=== PATIENT | female | born 1965 | race Hispanic/Latino ===

== ENCOUNTER 2017-09-18 13:56 | Emergency (ER) | payer MEDICARE ==
[2017-09-18] MEDS ORDERED: DIATR MEGLU/DIATRIZOATE SODIUM 30 ML BOTTLE PO ONE (14:43)
== END 2017-09-18 15:14 | disposition home or self-care (01) ==
LOC: EDH 13:56
DX: K94.23 Gastrostomy malfunction (principal); G80.9 Cerebral palsy, unspecified; E07.9 Disorder of thyroid, unspecified
CPT/HCPCS: 43760; 74018; 99284; Q9963

== ENCOUNTER 2018-06-22 12:06 | Emergency (ER) | payer MEDICARE ==
[~2018-06-22 12:06] MED LIST: ACET650S14 RC; ALBU2.5V2 IH; AMIT25 PEG; ASCO500T10 PEG; BACL10TA PEG; DOXY100C PEG; ENOX40DI8 SQ; FLUC200T PEG; FURO20TA6 PEG; HYDR-4457 PEG; HYDR1SYR3 IV; LACT10SO9 PEG; LEVE500L PEG; LEVO500T2 PO; LEVO75 PEG; LEVO75TA10 PEG; LORA2VIA33 IV; MIDO5 PEG; NITR0.4T SL; OXCA300T46 PO; PANT40TA25 PEG; PHEN32.43 PO; POLY17PO4 PEG; SERT50TA PEG; SERT50TA12 PEG; SIME80 PO; SPIR50TA PEG; [UNRECOGNIZED DRUG - CODE] IV
[2018-06-22 14:54] LABS: APPEARANCE,URINE SL CLOUDY (CLEAR); BILIRUBIN,URINE NEGATIVE (NEGATIVE); COLOR,URINE YELLOW (YELLOW); GLUCOSE, URINE (UA) NEGATIVE (NEGATIVE); KETONES,URINE NEGATIVE (NEGATIVE); LEUKOCYTE ESTERASE ,URINE MODERATE (NEGATIVE); NITRATE,URINE POSITIVE (NEGATIVE); OCCULT BLOOD,URINE MODERATE (NEGATIVE); PROTEIN,URINE 30 (NEGATIVE); UROBILINOGEN,URINE 0.2 mg/dL (0.2-1.0)
[2018-06-22] MEDS ORDERED: DIATR MEGLU/DIATRIZOATE SODIUM 30 ML BOTTLE ONE (14:57)
[2018-06-22 15:11] LABS: BACTERIA,URINE Few /HPF (None Seen); SQUAMOUS EPITHELIAL CELL,UR Rare /HPF (0-2)
== END 2018-06-22 15:52 | disposition home or self-care (01) ==
LOC: EDH 12:06
DX: Z43.1 Encounter for attention to gastrostomy (principal); E07.9 Disorder of thyroid, unspecified; Z98.890 Other specified postprocedural states
CPT/HCPCS: 43760; 74018; 81001; 87077; 87088; 87186; 99285; Q9963

== ENCOUNTER 2020-04-12 23:26 | Inpatient (IN) | payer MEDICARE ==
[~2020-04-12 23:26] MED LIST changes: -PANT40TA25 PEG; +PANT40TA55 PEG; -PHEN32.43 PO; +PHEN32.46 PO
[2020-04-13] MEDS ORDERED: DIATR MEGLU/DIATRIZOATE SODIUM 30 ML BOTTLE ONE (00:46)
[2020-04-13] MEDS ORDERED: SODIUM CHLORIDE 0.9% 1000ML 1,000 ML IV SCH (02:13)
[2020-04-13] MEDS ORDERED: DIPHENHYDRAMINE HCL 25 MG CAPSULE PO PRN (02:15)
[2020-04-13] MEDS ORDERED: LACTULOSE 20 GM/30 ML UDCUP PO PRN (02:15)
[2020-04-13] MEDS ORDERED: ONDANSETRON HCL 4 MG/2 ML VIAL IV PRN (02:15)
[2020-04-13] MEDS ORDERED: MAG HYDROX/AL HYDROX/SIMETH 30 ML, LIDOCAINE HCL 2% VISCOUS 30 ML, DIPHENHYDRAMINE HCL ... PO PRN ×3 (02:15)
[2020-04-13] MEDS ORDERED: GUAIFENESIN-DM 200/20 MG 10 ML PO PRN (02:15)
[2020-04-13] MEDS ORDERED: ZOLPIDEM TARTRATE 5 MG TAB PO PRN (02:15)
[2020-04-13] MEDS ORDERED: MAG HYDROX/AL HYDROX/SIMETH ES 30 ML SUSP UDCUP PO PRN (02:15)
[2020-04-13] MEDS ORDERED: DiphenhydrAMINE HCL 50 MG/ML VIAL IV PRN (02:15)
[2020-04-13] MEDS ORDERED: ACETAMINOPHEN 325 MG TAB PO PRN ×2 (02:15)
[2020-04-13] MEDS ORDERED: LIDOCAINE HCL 2% VISCOUS 30 ML, MAG HYDROX/AL HYDROX/SIMETH 30 ML, BELLADONNA-PHENOBARB... PO PRN ×3 (02:15)
[2020-04-13] MEDS ORDERED: NITROGLYCERIN 0.4 MG SL TAB SL PRN (02:15)
[2020-04-13 02:48] LABS: BASOPHILS % (AUTO) 0.3 % (0.0-5.0); EOSINOPHILS % (AUTO) 2.3 % (0.0-8.0); HEMATOCRIT 32.2 % (36-48); LYMPHOCYTES % (AUTO) 29.2 % (21.0-51.0); MEAN CORPUSCULAR HEMOGLOBIN 30.9 pg (27.0-33.0); MEAN CORPUSCULAR HGB CONC 34.5 g/dL (32.0-36.0); MEAN CORPUSCULAR VOLUME 89.7 fL (79-99); MONOCYTES % (AUTO) 6.4 % (3.0-13.0); NEUTROPHILS % (AUTO) 61.5 % (40.0-77.0); PLATELET COUNT (AUTO) 293 K/uL (130-400); RED BLOOD CELL COUNT(AUTO) 3.59 MIL/uL (4.00-5.50); RED CELL DISTRIBUTION WIDTH 13.2 % (11.0-15.5); WHITE BLOOD COUNT (AUTO) 10.4 K/uL (4.8-10.8)
[2020-04-13 02:57] LABS: CREATININE 0.8 mg/dL (0.5-1.5); POTASSIUM 4.1 mmol/L (3.5-5.1)
[2020-04-13] MEDS: FAMOTIDINE/PF 20 MG/2 ML VIAL IV SCH ×2 (09:00→20:58)
[2020-04-13 09:48] VITALS: BP 97/59
[2020-04-13] MEDS ORDERED: PHEN20EL5 PEG (11:38)
[2020-04-13] MEDS ORDERED: OXCA300T28 PEG ×2 (11:38)
[2020-04-13] MEDS ORDERED: LEVE500L PEG (11:39)
[2020-04-13] MEDS ORDERED: BACL10TA PEG (11:39)
[2020-04-13 16:46] VITALS: BP 121/67
[2020-04-13 20:00] VITALS: BP 149/77
[2020-04-13] MEDS: LEVETIRACETAM 500 MG in SODIUM CHLORIDE 0.9% 100 ML IV SCH (20:58)
[2020-04-13] MEDS: PHENOBARBITAL 20 MG/5 ML PEG SCH (21:00)
[2020-04-13] MEDS: LEVETIRACETAM PEG SCH (21:00)
--- NOTE | 2020-04-13 21:45 | NUR ---
phenobarbital 120 mg iv given as ordered by turbine inspector
[2020-04-13] MEDS ORDERED: PHARMACY COMMUNICATION MISC SCH (22:00)
[2020-04-14] VITALS (26 sets, daily range): BP systolic 80–150; BP diastolic 53–79
[2020-04-14 06:02] LABS: BASOPHILS % (AUTO) 0.3 % (0.0-5.0); EOSINOPHILS % (AUTO) 2.4 % (0.0-8.0); HEMATOCRIT 33.8 % (36-48); LYMPHOCYTES % (AUTO) 45.6 % (21.0-51.0); MEAN CORPUSCULAR HEMOGLOBIN 30.3 pg (27.0-33.0); MEAN CORPUSCULAR HGB CONC 33.4 g/dL (32.0-36.0); MEAN CORPUSCULAR VOLUME 90.6 fL (79-99); MONOCYTES % (AUTO) 8.1 % (3.0-13.0); NEUTROPHILS % (AUTO) 43.5 % (40.0-77.0); PLATELET COUNT (AUTO) 256 K/uL (130-400); RED BLOOD CELL COUNT(AUTO) 3.73 MIL/uL (4.00-5.50); RED CELL DISTRIBUTION WIDTH 13.2 % (11.0-15.5); WHITE BLOOD COUNT (AUTO) 6.7 K/uL (4.8-10.8)
[2020-04-14] MEDS: LEVETIRACETAM 500 MG in SODIUM CHLORIDE 0.9% 100 ML IV SCH ×2 (06:16→13:57)
[2020-04-14 06:19] LABS: ALBUMIN 3.5 g/dL (3.5-5.0); BILIRUBIN,TOTAL 0.3 mg/dL (0.2-1.0); CREATININE 0.3 mg/dL (0.5-1.5); POTASSIUM 3.6 mmol/L (3.5-5.1); TOTAL PROTEIN, SERUM 6.9 g/dL (6.0-8.3)
[2020-04-14] MEDS ORDERED: PHENOBARBITAL SODIUM 65 MG/ML ML IV SCH (06:30)
[2020-04-14] MEDS ORDERED: PHENOBARBITAL SODIUM IV SCH (06:45)
[2020-04-14] MEDS ORDERED: SODIUM CHLORIDE 0.9% IV SCH (06:45)
[2020-04-14] MEDS: LEVOTHYROXINE 75 MCG TABLET PEG SCH (07:10)
[2020-04-14] MEDS: BACLOFEN 10 MG TABLET PEG SCH (08:46)
[2020-04-14] MEDS: LEVETIRACETAM PEG SCH (09:00)
[2020-04-14] MEDS: FAMOTIDINE/PF 20 MG/2 ML VIAL IV SCH ×2 (09:05→22:34)
--- NOTE | 2020-04-14 10:21 | NUR ---
RD NOTIFICATION - TUBE FEEDING Pt pending PEG placement. Recommend initiate Continuous feedings of Jevity 1.5 initiated at 25mls/hr. Goal rate 50mls per hour. H2O Flushes at 175 Q6hrs. Bolus recommendations provided for discharge at 5 cans Jevity 1.5 per day. H2O Flushes for 180mls before and after each feeding. Recommendations faxed to [phone] RN notified. NUTRITION NOTE: Pt admitted for PEG malfunction, pending PEG placement. Approximate Ht and Weights used due to malfunctioning bed scale. Pt with History of CP and is bedbound. Ht obtained from previous admission (2018). RD to continue to monitor. Please notify as additional nutrition concerns arise. Thank you.
[2020-04-14] MEDS ORDERED: CEFAZOLIN SODIUM 1 GM VIAL ONE (11:49)
--- NOTE | 2020-04-14 12:15 | NUR ---
[facility] consult Unable to assess patient at this time as she is away from room for procedure. Will attempt at another time.
[2020-04-14] MEDS ORDERED: COMPOUND IV MISC 1 EACH IVSOLN MISC PRN (12:30)
--- NOTE | 2020-04-14 13:31 | NUR ---
IA- CLAL TO SISTER VIA PHONE STATE CAPRI LVIES WITH SISTER GARTH, HER SON, AND MANY GRANDCHILDREN. NEPHEW AND SISTER ARE PROVIDERS. [facility] HAS HOSPITAL BED AND WHEELCHAIR, USED TO HAVE W/CHAIR VAN BUT IT HAS BROEKN DOWN . NEEDING TO SAVE UP TO GET IT FIXED. STATES THAT PATIENT GETS MILK THROUGH [employer], DELIVERED, FORMULA IS PEDIMENT 1.0, NOT AVAIALBE AT THIS HOSPITAL, BUT PATIENT HAS NO INTOLERANCE OF OTHER FORMULAS. NO HOME HEALTH SISTER STATES WILL NEED EMS TRANSPORT, HAS HAD BROKEN BRITTNI LOWER EXTREMITIES AND CONTRACTURES. DCP TO HOME, 24-48 HRS AFTER G TUBE REPLACED. DISCUSSED TELE HEALTH WITH SISTER, WHO WILL CALL PCP TO FIND OUT IF PCP OFFICE IS DOING CM TO FOLLOW. Addendum: 04/14/20 at 1337 by RAJWINDER GREY RN CM Amended: Links added.
[2020-04-14] MEDS ORDERED: PHARMACY COMMUNICATION MISC SCH ×2 (14:45→20:00)
--- NOTE | 2020-04-14 15:12 | NUR ---
TUBE FEEDING STARTED TUBE FEEDING OF [facility] 1.5 AT APPROX 1505 HOURS. START RATE IS 25ML/HR FOR 5 HOURS THEN INCREASE 5ML/HR EVERY 5 HOURS TO A GOAL RATE OF 50ML/HR.
[2020-04-14] MEDS: OXCARBAZEPINE 300 MG TAB PEG SCH (22:34)
[2020-04-14] MEDS: PHENOBARBITAL 20 MG/5 ML PEG SCH (22:34)
--- NOTE | 2020-04-14 22:35 | NUR ---
GIVEN KEPPRA IV THAT PATIENT STILL HAD IN THE MEDICATION ROOM SINCE PHARMACY DID NOT BRING NOR FORMULATED THE MEDICATION VIA PEG TUBE AND IS NOT IN STOCKED IN THE MEDICATION ROOM
--- NOTE | 2020-04-14 22:45 | NUR ---
PT SUDDENLY HAD WHAT ACCORDING TO THE DATA WAREHOUSING ENGINEER WAS A SEIZURE, NURSE WAS AT THE BEDSIDE AND DATA WAREHOUSING ENGINEER WAS PAGED, DATA WAREHOUSING ENGINEER ARRIVED AT BEDSIDE VITAL SIGNS WERE STABLE THROUGH OUT ATIVAN 1 MG WAS GIVEN IV AND NEW ORDERFOR ATIVAN PRN IN CPEO ORDERS SEIZURE LASTED FOR 4:00 MINUTES AND PATIENT BECAME ORIENTED AND ALERT ONCE SEIZURE HAD FINISHED PT NODS HER HEAD AND STATES "YES" WHEN ASKED IF SHE FEELS BETTER PT DENIED SOB , DENIES ANY PAIN SEIZURES PADS WERE IN PLACE, PATIENT DID NOT SUSTAIN ANY PHYSICAL INGURY, BEFORE, DURING NOR AFTER THE SEIZURE SUCTION WAS AVAILABLE AT THE TIME OF THE SEIZURE WILL CONTINUE TO MONITOR
[2020-04-14] MEDS ORDERED: LORAZEPAM 2 MG/ML 1 ML VIAL ONE (22:59)
[2020-04-15] VITALS (7 sets, daily range): BP systolic 109–139; BP diastolic 58–82
[2020-04-15] MEDS ORDERED: LORAZEPAM 2 MG/ML 1 ML VIAL IVP PRN
[2020-04-15 05:41] LABS: BASOPHILS % (AUTO) 0.3 % (0.0-5.0); EOSINOPHILS % (AUTO) 1.5 % (0.0-8.0); HEMATOCRIT 35.4 % (36-48); LYMPHOCYTES % (AUTO) 35.6 % (21.0-51.0); MEAN CORPUSCULAR HEMOGLOBIN 30.5 pg (27.0-33.0); MEAN CORPUSCULAR HGB CONC 33.6 g/dL (32.0-36.0); MEAN CORPUSCULAR VOLUME 90.8 fL (79-99); MONOCYTES % (AUTO) 10.6 % (3.0-13.0); NEUTROPHILS % (AUTO) 51.7 % (40.0-77.0); PLATELET COUNT (AUTO) 257 K/uL (130-400); RED CELL DISTRIBUTION WIDTH 13.1 % (11.0-15.5); WHITE BLOOD COUNT (AUTO) 8.9 K/uL (4.8-10.8)
[2020-04-15 06:09] LABS: ALBUMIN 3.8 g/dL (3.5-5.0); BILIRUBIN,TOTAL 0.4 mg/dL (0.2-1.0); CREATININE 0.3 mg/dL (0.5-1.5); POTASSIUM 3.3 mmol/L (3.5-5.1); TOTAL PROTEIN, SERUM 7.4 g/dL (6.0-8.3)
[2020-04-15] MEDS ORDERED: BISACODYL 10 MG SUPP.RECT RC PRN ×2 (06:15→12:45)
[2020-04-15] MEDS: LEVOTHYROXINE 75 MCG TABLET PEG SCH (06:42)
[2020-04-15] MEDS ORDERED: LEVETIRACETAM 100 MG/ML 5 ML UDCUP PEG SCH (06:51)
[2020-04-15] MEDS: BACLOFEN 10 MG TABLET PEG SCH (08:35)
[2020-04-15] MEDS: FAMOTIDINE/PF 20 MG/2 ML VIAL IV SCH ×2 (08:35→20:29)
[2020-04-15] MEDS: OXCARBAZEPINE 300 MG TAB PEG SCH ×2 (08:35→20:29)
[2020-04-15] MEDS ORDERED: LEVE500L PO (09:09)
[2020-04-15] MEDS ORDERED: LEVETIRACETAM 250 MG in SODIUM CHLORIDE 0.9% 100 ML IV SCH (09:18)
[2020-04-15] MEDS ORDERED: LEVETIRACETAM IV SCH (10:15)
[2020-04-15] MEDS ORDERED: POTASSIUM CHLORIDE 10% ELIXIR 20 MEQ/15 ML UDCUP PO SCH (10:15)
[2020-04-15] MEDS ORDERED: SODIUM CHLORIDE 0.9% IV SCH (10:15)
--- NOTE | 2020-04-15 12:48 | NUR ---
PLAN OF CARE REVIEWED. DISCHARGE TO HOME WITH SISTER AND NEPHEW TO CONTINUE PROVIDER SERVICES/ALL CARE, NO ANTICIPATED NEED FOR HH AT THIS TIME. EMS TO BE ARRANGED. Addendum: 04/15/20 at 1249 by RAJWINDER GREY RN CM Amended: Links added.
--- NOTE | 2020-04-15 12:48 | NUR ---
DISCUSSEDPLAN OF CAR WITH MD. LU TOMORROW EXPECTED Addendum: 04/15/20 at 1248 by RAJWINDER GREY RN CM Amended: Links added.
[2020-04-15] MEDS: LACTATED RINGERS 1000ML 1,000 ML IV SCH (18:04)
[2020-04-15 18:41] LABS: POTASSIUM 4.1 mmol/L (3.5-5.1)
--- NOTE | 2020-04-15 19:00 | NUR ---
TUBEFEEDING Received pt with tubefeeding off.As per nurse,pt is pending to have a bowel movement.Tubefeeding was stopped during the day.
[2020-04-15] MEDS: LEVETIRACETAM PEG SCH (20:22)
--- NOTE | 2020-04-15 20:28 | NUR ---
MAG CITRATE MG citrate given via peg for constipation.
[2020-04-15] MEDS: PHENOBARBITAL 20 MG/5 ML PEG SCH (20:29)
[2020-04-15] MEDS: LEVETIRACETAM 750 MG in SODIUM CHLORIDE 0.9% 100 ML IV SCH (20:40)
[2020-04-15] MEDS ORDERED: MAGNESIUM CITRATE 296 ML SOLUTION GT ONE (20:45)
--- NOTE | 2020-04-15 22:00 | NUR ---
TURN Pt turned and repositioned q 2 hrs.Oral care rendered.Hob up 45 degrees.
--- NOTE | 2020-04-16 03:31 | NUR ---
MED EFFECT Pt had a large liquid,brownish bowel movement.Incontinent care rendered.
[2020-04-16 04:00] VITALS: BP 110/72
[2020-04-16 04:09] LABS: BASOPHILS % (AUTO) 0.4 % (0.0-5.0); EOSINOPHILS % (AUTO) 2.8 % (0.0-8.0); HEMATOCRIT 34.2 % (36-48); LYMPHOCYTES % (AUTO) 38.9 % (21.0-51.0); MEAN CORPUSCULAR HEMOGLOBIN 30.3 pg (27.0-33.0); MEAN CORPUSCULAR HGB CONC 33.3 g/dL (32.0-36.0); MONOCYTES % (AUTO) 8.3 % (3.0-13.0); NEUTROPHILS % (AUTO) 49.3 % (40.0-77.0); PLATELET COUNT (AUTO) 293 K/uL (130-400); RED BLOOD CELL COUNT(AUTO) 3.76 MIL/uL (4.00-5.50); RED CELL DISTRIBUTION WIDTH 13.1 % (11.0-15.5); WHITE BLOOD COUNT (AUTO) 7.9 K/uL (4.8-10.8)
[2020-04-16 04:35] LABS: ALBUMIN 3.9 g/dL (3.5-5.0); BILIRUBIN,TOTAL 0.3 mg/dL (0.2-1.0); CREATININE 0.2 mg/dL (0.5-1.5); TOTAL PROTEIN, SERUM 7.3 g/dL (6.0-8.3)
[2020-04-16] MEDS ORDERED: POTASSIUM CHLORIDE 20MEQ/100ML 100 ML IV PRN ×2 (05:00)
[2020-04-16] MEDS ORDERED: LIDOCAINE HCL-MPF 1% 2ML VIAL IV PRN ×2 (05:00)
[2020-04-16] MEDS ORDERED: POTASSIUM CHLORIDE 20 MEQ ERTAB PO PRN (05:00)
[2020-04-16] MEDS: LEVOTHYROXINE 75 MCG TABLET PEG SCH (05:06)
[2020-04-16] MEDS: POTASSIUM CHLORIDE 10% ELIXIR 20 MEQ/15 ML UDCUP PO PRN ×2 (05:07→08:56)
--- NOTE | 2020-04-16 06:47 | NUR ---
BEDBATH Pt bathed per staff,rui well.
[2020-04-16 08:15] VITALS: BP 121/50
[2020-04-16] MEDS: BACLOFEN 10 MG TABLET PEG SCH (08:55)
[2020-04-16] MEDS: FAMOTIDINE/PF 20 MG/2 ML VIAL IV SCH ×2 (08:55→21:39)
[2020-04-16] MEDS: LEVETIRACETAM 750 MG in SODIUM CHLORIDE 0.9% 100 ML IV SCH (08:56)
[2020-04-16] MEDS: OXCARBAZEPINE 300 MG TAB PEG SCH ×2 (08:56→21:39)
[2020-04-16] MEDS: LEVETIRACETAM PEG SCH ×2 (09:00→21:00)
[2020-04-16] MEDS ORDERED: POLYETHYLENE GLYCOL 3350 17 GM POWD.PACK PO SCH (09:00)
[2020-04-16] MEDS: LACTATED RINGERS 1000ML 1,000 ML IV SCH (09:09)
[2020-04-16] MEDS: ENOXAPARIN SODIUM 40 MG/0.4 ML SYRINGE SQ SCH (10:12)
[2020-04-16 11:46] VITALS: BP 120/73
[2020-04-16 16:19] VITALS: BP 149/85
[2020-04-16 16:27] LABS: MAGNESIUM 2.1 mg/dL (1.80-2.40); POTASSIUM 4.2 mmol/L (3.5-5.1)
[2020-04-16 19:50] VITALS: BP 125/73
[2020-04-16] MEDS: LEVETIRACETAM 100 MG/ML 5 ML UDCUP PEG SCH (21:39)
[2020-04-16] MEDS: PHENOBARBITAL 20 MG/5 ML PEG SCH (21:39)
[2020-04-17] MEDS: LACTATED RINGERS 1000ML 1,000 ML IV SCH (00:09)
[2020-04-17 00:14] VITALS: BP 99/65
[2020-04-17 04:29] VITALS: BP 96/61
--- NOTE | 2020-04-17 04:58 | NUR ---
Nurse Concern Patient had 120mg of phenobarbital ordered. I was concerned of the dosage for the patient, so I called the hospitalist construction accountant (FINA). I was told to give the patient the medication because that is what she takes at home (per MD). Patient is in the bed resting peacefully & vitals are stable. She is not showing any S/S of distress.
[2020-04-17] MEDS: LEVOTHYROXINE 75 MCG TABLET PEG SCH (06:33)
[2020-04-17 06:45] LABS: MAGNESIUM 1.9 mg/dL (1.80-2.40)
[2020-04-17 07:30] VITALS: BP 94/55
[2020-04-17] MEDS: LEVETIRACETAM PEG SCH ×2 (09:00→21:00)
[2020-04-17] MEDS: LEVETIRACETAM 100 MG/ML 5 ML UDCUP PEG SCH ×2 (09:09→21:53)
[2020-04-17] MEDS: BACLOFEN 10 MG TABLET PEG SCH (09:10)
[2020-04-17] MEDS: ENOXAPARIN SODIUM 40 MG/0.4 ML SYRINGE SQ SCH (09:10)
[2020-04-17] MEDS: FAMOTIDINE/PF 20 MG/2 ML VIAL IV SCH ×2 (09:10→21:53)
[2020-04-17] MEDS: OXCARBAZEPINE 300 MG TAB PEG SCH ×2 (09:10→21:53)
[2020-04-17 16:00] VITALS: BP 124/75
[2020-04-17] MEDS ORDERED: METHYLPREDNISOLONE SOD SUCC 40MG/ML 1ML IVP SCH ×2 (16:25→18:45)
[2020-04-17 19:34] VITALS: BP 127/70
[2020-04-17] MEDS: NYSTATIN 15 GM POWDER TP SCH (21:23)
[2020-04-17] MEDS: PHENOBARBITAL 20 MG/5 ML PEG SCH (21:53)
[2020-04-17 23:57] VITALS: BP 121/70
[2020-04-18 03:53] VITALS: BP 102/68
[2020-04-18] MEDS: LEVOTHYROXINE 75 MCG TABLET PEG SCH (05:42)
[2020-04-18 06:38] LABS: CREATININE 0.3 mg/dL (0.5-1.5); POTASSIUM 3.9 mmol/L (3.5-5.1)
[2020-04-18 08:00] VITALS: BP 103/61
[2020-04-18] MEDS: LEVETIRACETAM PEG SCH (09:00)
[2020-04-18] MEDS: LEVETIRACETAM 100 MG/ML 5 ML UDCUP PEG SCH (10:23)
[2020-04-18] MEDS: OXCARBAZEPINE 300 MG TAB PEG SCH (10:24)
[2020-04-18] MEDS: BACLOFEN 10 MG TABLET PEG SCH (10:25)
[2020-04-18] MEDS: FAMOTIDINE/PF 20 MG/2 ML VIAL IV SCH (10:25)
[2020-04-18] MEDS: ENOXAPARIN SODIUM 40 MG/0.4 ML SYRINGE SQ SCH (10:27)
[2020-04-18] MEDS: NYSTATIN 15 GM POWDER TP SCH (10:28)
[2020-04-18 12:00] VITALS: BP 104/67
[2020-04-18 16:00] VITALS: BP 101/55
--- NOTE | 2020-04-18 18:33 | NUR ---
follow up call made to ems to know what time they will transport ms dickens to her resident. they verbalized that she is next in the list
== END 2020-04-18 18:57 | disposition home or self-care (01) | DRG 395 ==
LOC: EDH 23:26 → EDHIP 04-13 02:13 → 4BH 04-13 09:31
PROVIDERS: ADMIT Internal Medicine; ATTEND Internal Medicine
PROC: 0DP68UZ Removal of Feeding Device from Stomach, Via Natural or Artificial Opening Endoscopic (ICD-10-PCS; principal; 2020-04-14)
PROC: 0DH63UZ Insertion of Feeding Device into Stomach, Percutaneous Approach (ICD-10-PCS; 2020-04-14)
DX: K94.23 Gastrostomy malfunction (principal); G40.901 Epilepsy, unspecified, not intractable, with status epilepticus; E87.6 Hypokalemia; F41.9 Anxiety disorder, unspecified; F32.9 Major depressive disorder, single episode, unspecified; E03.9 Hypothyroidism, unspecified; F79 Unspecified intellectual disabilities; G80.9 Cerebral palsy, unspecified; K59.00 Constipation, unspecified; R13.12 Dysphagia, oropharyngeal phase; R53.81 Other malaise; Y83.8 Other surgical procedures as the cause of abnormal reaction of the patient, or of later complication, without mention of misadventure at the time of the procedure; Z74.01 Bed confinement status
CPT/HCPCS: 36415; 43246; 70450; 71045; 74018; 74176; 80048; 80053; 82948; 83735; 83880; 84132; 85025; G0378; J0690; J1200; J1650; J1953; J2060; J2560; J2920; J3480; J3490; J7030; J7120; Q9963

== ENCOUNTER 2022-08-21 16:40 | Inpatient (IN) | payer MEDICARE ==
[~2022-08-21] VITALS: Ht 165.1 cm; Wt 50.6 kg
[~2022-08-21 16:40] MED LIST changes: -ACET650S14 RC; -ALBU2.5V2 IH; -AMIT25 PEG; -ASCO500T10 PEG; +AUGM250L PEG; -DOXY100C PEG; -ENOX40DI8 SQ; -FLUC200T PEG; -FURO20TA6 PEG; -HYDR-4457 PEG; -HYDR1SYR3 IV; -LACT10SO9 PEG; -LEVE500L PEG; +LEVE500L PO; -LEVO500T2 PO; -LEVO75 PEG; +LEVO75CA5 PEG; -LEVO75TA10 PEG; -LORA2VIA33 IV; -MIDO5 PEG; -NITR0.4T SL; +OXCA300T28 PEG; -OXCA300T46 PO; +PANT40TA54 PEG; -PANT40TA55 PEG; +PHEN20EL5 PEG; -PHEN32.46 PO; -POLY17PO4 PEG; +SERT-439 PEG; -SERT50TA PEG; -SERT50TA12 PEG; -SIME80 PO; -SPIR50TA PEG; +SPIR50TA5 PEG; -[UNRECOGNIZED DRUG - CODE] IV
[2022-08-21] MEDS ORDERED: ZOSYN 3.375GM +NS 50ML IV ONE (17:00)
[2022-08-21] MEDS ORDERED: VANCOMYCIN 1G VIAL IVPB ONE ×2 (17:00→19:00)
[2022-08-21 17:20] LABS: HEMATOCRIT 30.4 % (36-48); MEAN CORPUSCULAR HEMOGLOBIN 28.5 pg (27.0-33.0); MEAN CORPUSCULAR HGB CONC 34.2 g/dL (32.0-36.0); MEAN CORPUSCULAR VOLUME 83.3 fL (79-99); PLATELET COUNT (AUTO) 298 K/uL (130-400); RED BLOOD CELL COUNT(AUTO) 3.65 MIL/uL (4.00-5.50); RED CELL DISTRIBUTION WIDTH 16.3 % (11.0-15.5); WHITE BLOOD COUNT (AUTO) 7.3 K/uL (4.8-10.8)
[2022-08-21 17:31] LABS: BASOPHILS % (AUTO) 0.3 % (0.0-5.0); CREATININE 0.2 mg/dL (0.5-1.5); EOSINOPHILS % (AUTO) 1.3 % (0.0-8.0); LYMPHOCYTES % (AUTO) 28.1 % (21.0-51.0); MONOCYTES % (AUTO) 11.7 % (3.0-13.0); POTASSIUM 4.2 mmol/L (3.5-5.1)
[2022-08-21] MEDS ORDERED: 0.9%NACL 1000ML 1,000 ML IV ONE (18:00)
[2022-08-21] MEDS ORDERED: VANCOMYCIN 1G/250ML KIT 250 ML IV ONE (18:48)
[2022-08-21] MEDS ORDERED: VANCOMYCIN PROTOCOL PER PHARMACY IV SCH (19:00)
[2022-08-22] VITALS (7 sets, daily range): BP systolic 103–123; BP diastolic 51–72
[2022-08-22] MEDS ORDERED: VANCOMYCIN PROTOCOL PER PHARMACY IV PRN (00:30)
[2022-08-22] MEDS ORDERED: ONDANSETRON 4MG INJ IV PRN (00:30)
[2022-08-22] MEDS ORDERED: 0.9%NACL 1000ML 1,000 ML IV SCH (00:30)
[2022-08-22] MEDS ORDERED: LACTULOSE 20 GM/30 ML UDCUP PO PRN (00:30)
[2022-08-22] MEDS ORDERED: GUAIFENESIN-DM 200/20 MG 10 ML PO PRN (00:30)
[2022-08-22] MEDS ORDERED: MORPHINE 2 MG SYG IV PRN (00:30)
[2022-08-22] MEDS: ZOSYN 3.375GM+NS 50ML 50 ML IV SCH ×3 (04:22→21:03)
[2022-08-22] MEDS: LACTOSE REDUCED FOOD JT SCH (08:00)
[2022-08-22] MEDS: FIBER JT SCH (08:00)
[2022-08-22 08:51] LABS: HEMATOCRIT 29.9 % (36-48); MEAN CORPUSCULAR HEMOGLOBIN 29.1 pg (27.0-33.0); MEAN CORPUSCULAR HGB CONC 33.8 g/dL (32.0-36.0); MEAN CORPUSCULAR VOLUME 86.2 fL (79-99); RED BLOOD CELL COUNT(AUTO) 3.47 MIL/uL (4.00-5.50); RED CELL DISTRIBUTION WIDTH 16.5 % (11.0-15.5); WHITE BLOOD COUNT (AUTO) 8.1 K/uL (4.8-10.8)
[2022-08-22 08:59] LABS: CREATININE 0.3 mg/dL (0.5-1.5); POTASSIUM 3.8 mmol/L (3.5-5.1)
[2022-08-22] MEDS ORDERED: VANCOMYCIN 750MG VIAL IVPB SCH (09:00)
[2022-08-22] MEDS ORDERED: FAMOTIDINE 20MG VIAL IV SCH (09:00)
[2022-08-22] MEDS: VANCOMYCIN 750MG VIAL IVPB SCH ×2 (14:16→21:03)
[2022-08-22] MEDS: LEVETIRACETAM 100 MG/ML 5 ML UDCUP PO SCH (19:58)
[2022-08-22] MEDS: PHENOBARBITAL 20 MG/5 ML PEG SCH (19:58)
[2022-08-22] MEDS: BACLOFEN 10 MG TABLET PEG SCH (19:59)
[2022-08-22] MEDS ORDERED: LEVETIRACETAM 750 MG PO SCH (21:00)
[2022-08-22] MEDS: 0.9% NACL 250ML 250 ML IV SCH (21:03)
[2022-08-23 03:59] VITALS: BP 133/61
[2022-08-23] MEDS: ZOSYN 3.375GM+NS 50ML 50 ML IV SCH ×3 (04:16→21:40)
[2022-08-23 05:40] LABS: BASOPHILS % (AUTO) 0.5 % (0.0-5.0); EOSINOPHILS % (AUTO) 2.5 % (0.0-8.0); HEMATOCRIT 28.9 % (36-48); LYMPHOCYTES % (AUTO) 25.2 % (21.0-51.0); MEAN CORPUSCULAR HEMOGLOBIN 28.7 pg (27.0-33.0); MEAN CORPUSCULAR HGB CONC 34.3 g/dL (32.0-36.0); MEAN CORPUSCULAR VOLUME 83.8 fL (79-99); MONOCYTES % (AUTO) 11.5 % (3.0-13.0); NEUTROPHILS % (AUTO) 59.8 % (40.0-77.0); PLATELET COUNT (AUTO) 305 K/uL (130-400); RED BLOOD CELL COUNT(AUTO) 3.45 MIL/uL (4.00-5.50); RED CELL DISTRIBUTION WIDTH 16.6 % (11.0-15.5); WHITE BLOOD COUNT (AUTO) 7.9 K/uL (4.8-10.8)
[2022-08-23 06:09] LABS: ALBUMIN 3.2 g/dL (3.5-5.0); CREATININE 0.2 mg/dL (0.5-1.5); POTASSIUM 3.4 mmol/L (3.5-5.1); THYROID STIMULATING HORMONE 3.9 uIU/mL (0.36-3.74); TOTAL PROTEIN, SERUM 6.8 g/dL (6.0-8.3)
[2022-08-23] MEDS: VANCOMYCIN 750MG VIAL IVPB SCH (06:30)
[2022-08-23] MEDS: 0.9% NACL 250ML 250 ML IV SCH (06:30)
[2022-08-23] MEDS: LEVOTHYROXINE 75 MCG TABLET PEG SCH (06:38)
[2022-08-23] MEDS: POTASSIUM CHLORIDE 10% ELIXIR 20 MEQ/15 ML UDCUP GT PRN ×2 (06:56→21:44)
[2022-08-23] MEDS ORDERED: POTASSIUM CHLORIDE 20MEQ/100ML 100 ML IV PRN (07:00)
[2022-08-23] MEDS ORDERED: LIDOCAINE HCL-MPF 1% 2ML VIAL IV PRN (07:00)
[2022-08-23 08:00] VITALS: BP 119/60
[2022-08-23] MEDS: FIBER JT SCH (08:00)
[2022-08-23] MEDS: LACTOSE REDUCED FOOD JT SCH (08:00)
[2022-08-23] MEDS ORDERED: NON-FORMULARY MEDICATION 1 EACH (Levothyroxine Sodium (Levothyroxine) 75 MCG) PEG SCH (09:00)
[2022-08-23] MEDS: PANTOPRAZOLE 40 MG TAB DR GT SCH (10:32)
[2022-08-23] MEDS: BACLOFEN 10 MG TABLET PEG SCH ×3 (10:33→21:43)
[2022-08-23] MEDS: LEVETIRACETAM 100 MG/ML 5 ML UDCUP PO SCH ×2 (10:33→21:44)
[2022-08-23] MEDS: OXCARBAZEPINE 300 MG TAB PEG SCH (10:33)
[2022-08-23] MEDS: SERTRALINE HCL 50 MG TABLET PEG SCH (10:33)
[2022-08-23 12:00] VITALS: BP 124/64
[2022-08-23 16:00] VITALS: BP 114/64
[2022-08-23 19:00] VITALS: BP 106/73
[2022-08-23] MEDS: VANCOMYCIN 1G/250ML KIT 250 ML IV SCH (21:40)
[2022-08-23] MEDS: PHENOBARBITAL 20 MG/5 ML PEG SCH (21:43)
[2022-08-24] VITALS (20 sets, daily range): BP systolic 105–137; BP diastolic 54–94
[2022-08-24] MEDS: LEVOTHYROXINE 75 MCG TABLET PEG SCH (03:32)
[2022-08-24] MEDS: ZOSYN 3.375GM+NS 50ML 50 ML IV SCH ×2 (04:42→12:40)
[2022-08-24 05:23] LABS: BASOPHILS % (AUTO) 0.3 % (0.0-5.0); EOSINOPHILS % (AUTO) 2.1 % (0.0-8.0); HEMATOCRIT 32.4 % (36-48); LYMPHOCYTES % (AUTO) 27.5 % (21.0-51.0); MEAN CORPUSCULAR HEMOGLOBIN 28.8 pg (27.0-33.0); MEAN CORPUSCULAR HGB CONC 33.3 g/dL (32.0-36.0); MEAN CORPUSCULAR VOLUME 86.4 fL (79-99); MONOCYTES % (AUTO) 12.2 % (3.0-13.0); NEUTROPHILS % (AUTO) 57.6 % (40.0-77.0); PLATELET COUNT (AUTO) 300 K/uL (130-400); RED BLOOD CELL COUNT(AUTO) 3.75 MIL/uL (4.00-5.50); RED CELL DISTRIBUTION WIDTH 16.8 % (11.0-15.5); WHITE BLOOD COUNT (AUTO) 9.3 K/uL (4.8-10.8)
[2022-08-24 05:51] LABS: ALBUMIN 3.5 g/dL (3.5-5.0); CREATININE 0.3 mg/dL (0.5-1.5); POTASSIUM 4.1 mmol/L (3.5-5.1); TOTAL PROTEIN, SERUM 7.3 g/dL (6.0-8.3)
[2022-08-24] MEDS ORDERED: 0.9% NACL 250ML 250 ML ONE (07:47)
[2022-08-24] MEDS: VANCOMYCIN 1G/250ML KIT 250 ML IV SCH (07:59)
[2022-08-24] MEDS: FIBER JT SCH (08:00)
[2022-08-24] MEDS: LACTOSE REDUCED FOOD JT SCH (08:00)
[2022-08-24] MEDS: SERTRALINE HCL 50 MG TABLET PEG SCH (09:00)
[2022-08-24] MEDS: ENOXAPARIN SODIUM 40 MG/0.4 ML SYRINGE SQ SCH (09:00)
[2022-08-24] MEDS: BACLOFEN 10 MG TABLET PEG SCH ×3 (09:00→20:15)
[2022-08-24] MEDS: LEVETIRACETAM 100 MG/ML 5 ML UDCUP PO SCH ×2 (09:00→20:15)
[2022-08-24] MEDS: OXCARBAZEPINE 300 MG TAB PEG SCH (09:00)
[2022-08-24] MEDS: PANTOPRAZOLE 40 MG TAB DR GT SCH (09:00)
[2022-08-24] MEDS ORDERED: VANCOMYCIN 1G VIAL ONE (11:11)
[2022-08-24] MEDS ORDERED: LIDOCAINE PF 100MG/5ML (2%) SYRINGE 5ML ONE (12:41)
[2022-08-24] MEDS ORDERED: PROPOFOL 10 MG/ML 20ML VIAL IV ONE (12:42)
[2022-08-24] MEDS ORDERED: ROCURONIUM 10MG/1ML SYR 10 MG/ML ML ONE (12:42)
[2022-08-24] MEDS ORDERED: FENTANYL CITRATE PF 50 MCG/1 ML 2ML VIAL ONE (12:51)
[2022-08-24] MEDS ORDERED: SUGAMMADEX SODIUM 200 MG/2 ML VIAL IV ONE (13:31)
[2022-08-24] MEDS ORDERED: MEPERIDINE-PF 25 MG/ML SYG ONE (14:14)
[2022-08-24] MEDS: CEFAZOLIN SODIUM 2 GM VIAL IVPB SCH ×2 (15:06→21:14)
[2022-08-24] MEDS ORDERED: LORAZEPAM 2 MG/ML 1 ML VIAL IVP PRN (20:00)
[2022-08-24] MEDS: PHENOBARBITAL 20 MG/5 ML PEG SCH (20:15)
[2022-08-25 04:00] VITALS: BP 111/59
[2022-08-25] MEDS: CEFAZOLIN SODIUM 2 GM VIAL IVPB SCH ×3 (05:26→22:02)
[2022-08-25] MEDS: LEVOTHYROXINE 75 MCG TABLET PEG SCH (05:26)
[2022-08-25] MEDS: ACETAMINOPHEN 325 MG TAB PO PRN ×2 (05:32→08:35)
[2022-08-25 05:48] LABS: BASOPHILS % (AUTO) 0.5 % (0.0-5.0); EOSINOPHILS % (AUTO) 2.2 % (0.0-8.0); HEMATOCRIT 29.1 % (36-48); LYMPHOCYTES % (AUTO) 26.5 % (21.0-51.0); MEAN CORPUSCULAR HEMOGLOBIN 28.6 pg (27.0-33.0); MEAN CORPUSCULAR VOLUME 86.6 fL (79-99); MONOCYTES % (AUTO) 11.8 % (3.0-13.0); NEUTROPHILS % (AUTO) 58.6 % (40.0-77.0); PLATELET COUNT (AUTO) 281 K/uL (130-400); RED BLOOD CELL COUNT(AUTO) 3.36 MIL/uL (4.00-5.50); RED CELL DISTRIBUTION WIDTH 16.9 % (11.0-15.5)
[2022-08-25 08:00] VITALS: BP 100/56
[2022-08-25] MEDS: PANTOPRAZOLE 40 MG TAB DR GT SCH (08:34)
[2022-08-25] MEDS: BACLOFEN 10 MG TABLET PEG SCH ×3 (08:35→20:37)
[2022-08-25] MEDS: LEVETIRACETAM 100 MG/ML 5 ML UDCUP PO SCH ×2 (08:35→20:36)
[2022-08-25] MEDS: OXCARBAZEPINE 300 MG TAB PEG SCH (08:35)
[2022-08-25] MEDS: SERTRALINE HCL 50 MG TABLET PEG SCH (08:35)
[2022-08-25] MEDS: LACTOSE REDUCED FOOD JT SCH (08:36)
[2022-08-25] MEDS: FIBER JT SCH (08:36)
[2022-08-25] MEDS: ENOXAPARIN SODIUM 40 MG/0.4 ML SYRINGE SQ SCH (08:36)
[2022-08-25 12:00] VITALS: BP 98/56
[2022-08-25 13:23] LABS: CREATININE 0.4 mg/dL (0.5-1.5); POTASSIUM 3.4 mmol/L (3.5-5.1)
[2022-08-25 13:29] LABS: ALBUMIN 3.2 g/dL (3.5-5.0); TOTAL PROTEIN, SERUM 6.8 g/dL (6.0-8.3)
[2022-08-25 16:00] VITALS: BP 118/60
[2022-08-25 20:00] VITALS: BP 131/70
[2022-08-25] MEDS: PHENOBARBITAL 20 MG/5 ML PEG SCH (20:37)
[2022-08-26] VITALS: BP 112/64
[2022-08-26 04:00] VITALS: BP 132/72
[2022-08-26 05:14] LABS: BASOPHILS % (AUTO) 0.5 % (0.0-5.0); EOSINOPHILS % (AUTO) 4.3 % (0.0-8.0); LYMPHOCYTES % (AUTO) 27.9 % (21.0-51.0); MEAN CORPUSCULAR HEMOGLOBIN 28.4 pg (27.0-33.0); MEAN CORPUSCULAR HGB CONC 32.5 g/dL (32.0-36.0); MEAN CORPUSCULAR VOLUME 87.5 fL (79-99); MONOCYTES % (AUTO) 11.4 % (3.0-13.0); NEUTROPHILS % (AUTO) 55.4 % (40.0-77.0); PLATELET COUNT (AUTO) 261 K/uL (130-400); RED CELL DISTRIBUTION WIDTH 16.6 % (11.0-15.5); WHITE BLOOD COUNT (AUTO) 6.6 K/uL (4.8-10.8)
[2022-08-26 05:36] LABS: ALBUMIN 2.9 g/dL (3.5-5.0); CREATININE 0.3 mg/dL (0.5-1.5); POTASSIUM 3.5 mmol/L (3.5-5.1); TOTAL PROTEIN, SERUM 6.4 g/dL (6.0-8.3)
[2022-08-26] MEDS: LEVOTHYROXINE 75 MCG TABLET PEG SCH (05:40)
[2022-08-26] MEDS: CEFAZOLIN SODIUM 2 GM VIAL IVPB SCH (05:40)
[2022-08-26] MEDS: FIBER JT SCH (08:00)
[2022-08-26] MEDS: LACTOSE REDUCED FOOD JT SCH (08:00)
[2022-08-26 08:59] VITALS: BP 118/62
[2022-08-26] MEDS: ENOXAPARIN SODIUM 40 MG/0.4 ML SYRINGE SQ SCH (10:54)
[2022-08-26] MEDS: PANTOPRAZOLE 40 MG TAB DR GT SCH (10:54)
[2022-08-26] MEDS: SERTRALINE HCL 50 MG TABLET PEG SCH (10:55)
[2022-08-26] MEDS: BACLOFEN 10 MG TABLET PEG SCH (10:55)
[2022-08-26] MEDS: OXCARBAZEPINE 300 MG TAB PEG SCH (10:55)
[2022-08-26] MEDS: LEVETIRACETAM 100 MG/ML 5 ML UDCUP PO SCH (10:55)
[2022-08-26 12:00] VITALS: BP 110/63
== END 2022-08-26 12:45 | DRG 856 ==
LOC: EDH 16:40 → EDHIP 08-22 00:02 → 3CH 08-22 00:44
PROVIDERS: ADMIT Hospitalist; ATTEND Hospitalist
PROC: 0JBP0ZZ Excision of Left Lower Leg Subcutaneous Tissue and Fascia, Open Approach (ICD-10-PCS; principal; 2022-08-24 12:39)
DX: T81.41XA Infection following a procedure, superficial incisional surgical site, initial encounter (principal); E43 Unspecified severe protein-calorie malnutrition; E87.1 Hypo-osmolality and hyponatremia; L02.416 Cutaneous abscess of left lower limb; Z20.822 Contact with and (suspected) exposure to COVID-19; G80.9 Cerebral palsy, unspecified; G40.909 Epilepsy, unspecified, not intractable, without status epilepticus; E03.9 Hypothyroidism, unspecified; E11.9 Type 2 diabetes mellitus without complications; Y83.8 Other surgical procedures as the cause of abnormal reaction of the patient, or of later complication, without mention of misadventure at the time of the procedure; B95.61 Methicillin susceptible Staphylococcus aureus infection as the cause of diseases classified elsewhere; D64.9 Anemia, unspecified; Z93.1 Gastrostomy status
CPT/HCPCS: 36415; 71045; 73562; 80048; 80053; 80177; 80202; 82040; 82533; 83880; 84155; 84443; 85025; 85027; 87040; 87070; 87076; 87077; 87186; 87635; 96365; 96366; 96375; G0378; J1650; J2001; J2175; J2543; J2704; J3010; J3370; J3490; J7030; J7050

== ENCOUNTER 2023-10-29 16:39 | Emergency (ER) | payer MEDICARE ==
[~2023-10-29] VITALS: Ht 170.2 cm; Wt 52.2 kg
[~2023-10-29 16:39] MED LIST changes: -AUGM250L PEG
[2023-10-29] MEDS ORDERED: DIATR MEGLU/DIATRIZOATE SODIUM 30 ML BOTTLE ONE (17:29)
[2023-10-29 22:39] VITALS: BP 127/73; PULSE 75; RESP 17; O2SAT 97
== END 2023-10-29 22:47 | disposition home or self-care (01) ==
LOC: EDH 16:39
DX: K94.23 Gastrostomy malfunction (principal); G80.9 Cerebral palsy, unspecified; Z79.899 Other long term (current) drug therapy; Z98.890 Other specified postprocedural states
CPT/HCPCS: 99284; 43762; 74018; Q9963

== ENCOUNTER 2024-12-16 19:53 | Emergency (ER) | payer MEDICARE ==
[~2024-12-16] VITALS: Ht 165.1 cm; Wt 50.3 kg
[~2024-12-16 19:53] MED LIST changes: -LEVO75CA5 PEG; +LEVO75CA6 PEG; +PHEN20EL20 PEG; -PHEN20EL5 PEG
--- NOTE | 2024-12-16 20:05 | ERN ---
ED Note History of Present Illness Stated Complaint: LEFT LEG PAIN Chief Complaint: Lower Extremity Pain/Injury Time Seen by MD: 19:56 Dictation: PATIENT IS A 59-YEAR-OLD FEMALE COMING IN VIA EMS WITH COMPLAINTS OF LEFT LEG PAIN SHE HAS HAD FOR LAST SEVERAL DAYS. SHE IS TENDER TO HER CALF AND TO HER THIGH AREA. SWELLING NOTED. DISTAL NEUROVASCULAR CMS GROSSLY INTACT. PATIENT IS BED-BOUND WITH CEREBRAL PALSY. SKIN IS GROSSLY INTACT Allergies: Coded Allergies: No Known Drug Allergies (Unverified Allergy, Unknown, 03/15/18) Home Meds Reported Medications Baclofen (Baclofen) 10 Mg Tablet, 10 MG PEG NOON, TAB 07/07/22 Levothyroxine Sodium (Levothyroxine) 75 Mcg Capsule, 75 MCG PEG DAILY, CAP 07/07/22 Spironolactone (Spironolactone) 50 Mg Tablet, 50 MG PEG DAILY, TAB 07/07/22 Pantoprazole Sodium (Pantoprazole Sodium) 40 Mg Tablet.dr, 40 MG PEG DAILY, TAB 07/07/22 Sertraline HCl (Sertraline HCl) 50 Mg Tablet, 50 MG PEG DAILY, TAB 07/07/22 Levetiracetam (Keppra Soln) 100 Mg/Ml Soln, 750 MG PO BID, ML 04/15/20 Baclofen (Baclofen) 10 Mg Tablet, 1.5 TAB PEG HS, TAB 04/13/20 Oxcarbazepine (Oxcarbazepine) 300 Mg Tablet, 2.5 TAB PEG DAILY 04/13/20 Phenobarbital (Phenobarbital) 20 Mg/5 Ml Elixir, 30 ML PEG HS 04/13/20 Baclofen (Baclofen) 10 Mg Tablet, 1 TAB PEG DAILY, TAB 03/16/18 Past Medical History Past Medical History: Seizure 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 Surgical History: Other Surgical History Other: L KNEE HARDWARE REMOVAL, PEG TUBE History: Not Applicable RN Note Reviewed/Agreed w/PFSH: Yes Review of System Dictation CONSTITUTIONAL: NEGATIVE EXCEPT FOR HPI HEAD/FACE: NEGATIVE EXCEPT FOR HPI EENT: NEGATIVE EXCEPT FOR HPI RESPIRATORY: NEGATIVE EXCEPT FOR HPI GASTROINTESTINAL/ABDOMINAL: NEGATIVE EXCEPT FOR HPI GENITOURINARY: NEGATIVE EXCEPT FOR HPI MUSCULOSKELETAL: NEGATIVE EXCEPT FOR HPI LEFT LEG PAIN SWELLING TO CALF AND THIGH INTEGUMENTARY: NEGATIVE EXCEPT FOR HPI NEUROLOGICAL/PSYCH: NEGATIVE EXCEPT FOR HPI HEMATOLOGIC/LYMPHATIC: NEGATIVE EXCEPT FOR HPI ALL SYSTEMS NEGATIVE, EXCEPT NOTED ABOVE. 13 POINT REVIEW OF SYSTEMS ASSESSED AND ALL NEGATIVE EXCEPT FOR ABOVE. Physical Exam Dictation VITAL SIGNS REVIEWED GENERAL APPEARANCE: ALERT, ORIENTED X 3, MODERATE DISTRESS, POORLY CONDITIONED AND DEBILITATED. HEAD AND FACE: NON-TRAUMATIC. EYES: PERRL, PINK CONJUNCTIVAS, EYELID NO TRAUMA, ANTERIOR CHAMBER WITH ARCUS SENILIS. EARS: PINNAS INTACT AND NO SIGNS OF TRAUMA OR ERYTHEMA EAR CANALS CLEAR AND NO DISCHARGE TM NO ERYTHEMA NOSE: NO DISCHARGE, NO BLEEDING. OROPHARYNX: MOUTH NORMAL, TONGUE PINK, PHARYNX CLEAR,NO ERYTHEMA, TONSILS NO EXUDATES, NO ABSCESSES NOTED, MUCOUS MEMBRANE MOIST NECK: SUPPLE, NON-TENDER, NO THYROMEGALY, NO MASSES, NO JVD, NO BRUITS BREAST:DEFERRED CHEST:NO TENDERNESS, NO CREPITUS, NO PARADOXICAL MOVEMENT, NO RETRACTIONS LUNGS:CLEAR, WELL-VENTILATED, SYMMETRIC, NO RALES, NO WHEEZING, NO RHONCHI, NO STRIDOR, GOOD BREATH SOUNDS BILATERALLY HEART: REGULAR RATE, REGULAR RHYTHM, NO MURMUR, NO GALLOPS VASCULAR: NO PERIPHERAL EDEMA, ABDOMEN: SOFT, POSITIVE BOWEL SOUNDS, NONDISTENDED, NO GUARDING, NONTENDER, NO REBOUND, NO MASSES NO HEPATOMEGALY, NO SPLENOMEGALY, NO GUPTA'S SIGN, NO HERNIAS. RECTAL: DEFERRED GENITAL: DEFERRED NEUROLOGICAL: NORMAL SPEECH, MOTOR FUNCTION INTACT, SENSORY FUNCTION INTACT MUSCULOSKELETAL: NECK NONTENDER, FULL RANGE OF MOTION, BACK NONTENDER, FULL RANGE OF MOTION, EXTREMITIES: CONTRACTURES NOTED TO BOTH LOWER EXTREMITIES, TENDERNESS TO LEFT CALF AND THIGH. DISTAL NEUROVASCULAR CMS INTACT NO ERYTHEMA. SKIN: COLOR PINK, DRY, NO TURGOR, NO RASH, NO LACERATIONS, NO ABRASIONS, NO CONTUSIONS. LYMPHATIC: DEFERRED Results (Laboratory/Radiology) Laboratory/Radiology US VENOUS DOPPLER UNILATERAL HISTORY: Left leg swelling COMPARISON: None TECHNIQUE: Right lower extremity venous Doppler ultrasound study was performed. FINDINGS: The left common femoral, femoral, popliteal, and posterior tibial veins are visualized. Normal flow with augmentation and compressibilities are demonstrated. Left greater saphenous vein is patent. IMPRESSION: 1. No evidence of deep venous thrombos Labs Reviewed?: Yes ED Course ED Course Orders Procedure Category Date Status Time Hydrocodone/Apap PHA 12/16/24 Complete 5/325 ([place] 5/325mg) 20:00 Us Venous Doppler US 12/16/24 Resulted Unilateral 20:00 Current Medications Medications (Trade) Dose Ordered Sig/Gerald Route PRN Reason Start Time Stop Time Status Last Admin Dose Admin Acetaminophen/ Hydrocodone Bitart ([facility]co 5/325MG) 1 tab ONCE ONCE PO 12/16/24 20:00 12/16/24 20:05 DC 12/16/24 21:01 2140/PATIENT FEELS BETTER AFTER TREATMENT. WE WILL DISCHARGE PATIENT BACK TO SNF WITH TYLENOL WITH CODEINE TOLD TO FOLLOW UP WITH HER PRIMARY CARE DOCTOR. Medical Decision Making [facility] MEDICAL DISCHARGE MAKING BASED ON ULTRASOUND OF LEFT LEG TO RULE OUT DVT. ULTRASOUND DOPPLER NEGATIVE PATIENT MANAGED WITH [facility] DISCHARGED HOME WITH TYLENOL WITH CODEINE DX & DISP Disposition: Discharge Departure Impression: Primary Impression: Pain in left leg Condition: Stable Scripts Acetaminophen with Codeine (Acetaminophen-Cod #3 Tablet) 300 Mg-30 Mg Tablet 1 TAB PO Q4H PRN for MODERATE TO SEVERE PAIN, #15 TAB 0 Refills Prov: MICHAEL FOREMAN GEAR TOOTH LAPPING MACHINE OPERATOR 12/16/24 Additional Instructions: Follow-up with primary care provider in 1 to 2 days. Take medications as direct ed here in the emergency room. Okay to continue home medications unless otherwise discussed during your visit in the emergency room today. Return to your nearest emergency room if symptoms worsen or if there is no improvement. Call 911 if you need immediate assistance. Take Tylenol or Motrin [id number] as needed and if no contraindications are present. Increase oral hydration. A wound culture or urine culture was ordered here in the emergency room department please follow-up with primary care provider and advise them to get repeat ports from our facility. If you had any Luis wrap/splints that were applied here, please do not remove them until you see your primary care or specialty. Take Tylenol with codeine as needed for pain. Follow up with your primary care doctor in 1-2 days. Referrals: JIMMY JOHNSON MD (PCP) Time of Disposition: 21:40 I have reviewed the case, and I agree with, Diagnosis and Plan MICHAEL FOREMAN NP December 16, 2024 20:05
[2024-12-16 21:00] VITALS: O2SAT 96
[2024-12-16] MEDS: HYDROcodone/APAP 5/325 1 TAB TABLET PO ONE (21:01)
--- NOTE | 2024-12-16 21:24 | HMCIMG ---
US VENOUS DOPPLER UNILATERAL HISTORY: Left leg swelling COMPARISON: None TECHNIQUE: Right lower extremity venous Doppler ultrasound study was performed. FINDINGS: The left common femoral, femoral, popliteal, and posterior tibial veins are visualized. Normal flow with augmentation and compressibilities are demonstrated. Left greater saphenous vein is patent. IMPRESSION: 1. No evidence of deep venous thrombosis is seen.
[2024-12-16] MEDS ORDERED: ACET-2079 PO (21:41)
--- NOTE | 2024-12-16 22:25 | NUR ---
[facility] WAS CALLED FOR TRANSPORT HOME AT THIS TIME
[2024-12-17 00:15] VITALS: BP 127/68; PULSE 71; RESP 18; TEMP 97.5
== END 2024-12-17 00:30 | disposition home or self-care (01) ==
LOC: EDH 19:53
DX: M79.605 Pain in left leg (principal); Z79.890 Hormone replacement therapy; Z79.899 Other long term (current) drug therapy
CPT/HCPCS: 93971; 99284